=== PATIENT | male | born 1990 | race Caucasian/White ===

== ENCOUNTER 2021-03-20 01:22 | Emergency (ER) | payer SELFPAY ==
[~2021-03-20 01:22] MED LIST: BACTRIM DS 8001 TA1 PO; BACTRIM DS 8001 TAB PO; CEPHALEXIN500 M1 PO; CIPRO 500MG TA500 MG PO; CLINDAMYCIN300 MG PO; IBUPAIN-200200 MG PO; KETOROLAC10 MG PO; LORTAB 7.5/3251 TAB PO; NORCO 325 MG-51 TA1 PO; PATANOL OPHTHALM5 ML OU; TYLENOL 325MG325 MG PO; ULTRAM 50MG TAB50 MG PO; ULTRAM50 MG PO; ZITHROMAX Z PA250 MG PO; ZYRTEC10 M3 PO
[2021-03-20 03:15] LABS: BASO # 0.02 (0.02-0.10); EOS # 0.24 (0.04-0.40); EOS % 2.8 % (0.0-4.0); HEMATOCRIT 46.1 % (42.0-52.0); HEMOGLOBIN 15.1 g/dL (13.5-18.0); LYMPH# 1.84 (1.50-4.00); MEAN CELL VOLUME 90 fl (78-100); MEAN CORPUSCULAR HEMOGLOBIN 29 pg (27-31); MEAN CORPUSCULAR HGB CONC 33 g/dL (33-37); MEAN PLATELET VOLUME 8.7 fl (7.4-10.4); NEU # 5.37 (1.40-6.50); PLATELET COUNT 232 K/mm3 (130-400); RED BLOOD COUNT 5.14 M/mm3 (4.20-5.60); RED CELL DISTRIBUTION WIDTH 12.5 % (11.5-14.5); WHITE BLOOD COUNT 8.5 K/mm3 (4.8-10.8)
[2021-03-20 03:24] LABS: POTASSIUM 3.7 mmol/L (3.5-5.1)
[2021-03-20 03:25] LABS: CALCIUM 9.1 mg/dL (8.3-10.5)
[2021-03-20 03:26] LABS: TOTAL PROTEIN 7.2 g/dL (6.4-8.3)
[2021-03-20 03:28] LABS: TOTAL BILIRUBIN 0.4 mg/dL (0.2-1.2)
[2021-03-20] MEDS ORDERED: CIPRO500 M1 PO (03:38)
[2021-03-20] MEDS ORDERED: PERCOCET 325 MG1 TA5 PO (03:38)
[2021-03-20 03:55] VITALS: BP 140/87
== END 2021-03-20 03:55 | disposition home or self-care (01) ==
LOC: ED 01:22
PROVIDERS: Nurse Practitioner
DX: S91.331A Puncture wound without foreign body, right foot, initial encounter (principal); S93.601A Unspecified sprain of right foot, initial encounter; F17.200 Nicotine dependence, unspecified, uncomplicated; Z23 Encounter for immunization; Z88.1 Allergy status to other antibiotic agents; Z88.2 Allergy status to sulfonamides; W45.0XXA Nail entering through skin, initial encounter
CPT/HCPCS: 90715; J1885